=== PATIENT | female | born 1950 | race Caucasian/White ===

== ENCOUNTER 2016-07-13 16:57 | Inpatient (IN) | payer OTHER, MEDICARE ==
--- NOTE | ~2016-07-13 | PN ---
Unit #: [id number] #: [id number] Patient: SYLWIA MENDES [id number] [facility] [address] [place] [address] [id number] I MR#: [id number] NAME: SYLWIA MENDES ROOM: [facility] Age: 65 Sex: F Admission Date: 07/13/2016 : 1950 Attending Physician: Rene Valverde M.D. Admitting Physician: Rene Valverde M.D. Primary Care Physician: Primary Care Physician Amy SON NOTES DATE 07/18/2016 DISCUSSION Ms. Sol is a 65-year-old female seen on 07/18/2016. The patient interviewed, chart reviewed. Obtained information from nursing staff. The patient was compliant and cooperative. Mood sad, dysphoric flat affect, guarded. The patient did not show any aggressive behavior. Vital signs stable 97.2, 69, 16, 119/77. The patient did not show any aggressive behavior. Appropriate cooperative. Complete review of systems unremarkable. MENTAL STATUS EXAMINATION General appearance, the patient dressed casually. Attention span and concentration fair. Oriented to place and person. Mood and affect sad, depressed, flat affect. Speech monotone. Thought process concrete. The patient denied any thoughts of harming self or others but still reporting depression, anxiety, mood lability, guarded. Recent and remote memory fair. Insight and judgement fair. DIAGNOSES Bipolar mood disorder NOS current episode depressed ASSESSMENT/PLAN Advise to continue with current medication and therapeutic protocol. If need consider further adjustment of medication. Dictated by... Tito Bell/immanuel TD: 07/22/2016 00:24 JOB #: [id number] Unit #: [id number] #: [id number] Patient: SYLWIA MENDES JIMYDONTE PROGRESS NOTES Page 1 of 1 X Rene Valverde MD PROGRESS NOTE
--- NOTE | ~2016-07-13 | DS ---
Unit #: [id number] #: [id number] Patient: SYLWIA MENDES [id number] [place] [address] [id number] I MR#: [id number] NAME: SYLWIA MENDES ROOM: [facility] Age: 65 Sex: F Admission Date: 07/13/2016 : 1950 Discharge Date: 07/21/2016 Attending Physician: Rene Valverde M.D. Primary Care Physician: Primary Care Physician No DISCHARGE SUMMARY REASON FOR ADMISSION Depression. DIAGNOSTIC STUDIES LABORATORY RESULTS: Unremarkable. HOSPITAL COURSE The patient was admitted to inpatient unit on 07/13/2016 and discharged on 07/21/2016. The patient was treated on the inpatient unit with group therapy, individual therapy, and medication management. The patient responded well with the above modalities of treatment. Subsequently, the patient was discharged with a plan to follow up in outpatient program. DISCHARGE MEDICATIONS Celexa 20 mg daily for depression and Abilify 5 mg at bedtime for mood stabilization. The patient is to continue with Zanaflex 4 mg t.i.d. for pain, Voltaren 75 mg b.i.d. for pain, Glucophage 500 mg b.i.d. for diabetes, Singulair 10 mg daily for allergies, Zestril 5 mg daily for hypertension, Lipitor 10 mg daily for high cholesterol, Tegretol 200 mg at bedtime for seizure, and Cardizem CD 240 mg daily for hypertension. DISCHARGE DIAGNOSES Psychiatric: 1. Major depressive disorder, recurrent, F33.2. 2. History of bipolar mood disorder. Secondary diagnosis: Deferred. Medical diagnoses: History of obesity, history of atrial fibrillation, melanoma, diabetes mellitus, hypertension, hyperlipidemia, history of diverticulitis. Stressors: Psychosocial stressors. DISCHARGE INSTRUCTIONS The patient is to follow up in outpatient clinic as per high school social studies tutor. CONDITION ON DISCHARGE The patient was pleasant and cooperative. Denied any psychotic symptom or any suicidal ideation. PROGNOSIS Guarded. Unit #: [id number] #: [id number] Patient: SYLWIA MENDES DIET AND ACTIVITY As tolerated. Dictated by... Rene Valverde M.D. SZC/kate TD: 07/21/2016 15:53 JOB #: [id number] DISCHARGE SUMMARY Page 1 of 1 X Rene Valverde MD DISCHARGE SUMMARY
--- NOTE | ~2016-07-13 | PN ---
Unit #: [id number] #: [id number] Patient: SYLWIA MENDES [id number] [facility] [address] [place] [address] [id number] I MR#: [id number] NAME: SYLWIA MENDES ROOM: [facility] Age: 65 Sex: F Admission Date: 07/13/2016 : 1950 Attending Physician: Rene Vlaverde M.D. Admitting Physician: Rene Valverde M.D. Primary Care Physician: Primary Care Physician Amy REYES PROGRESS NOTES DATE OF SERVICE 07/16/2016 DISCUSSION Ms. Sol is a 65-year-old female seen on 07/16/2016. The patient interviewed, chart reviewed. Obtained information from nursing staff. The patient continues to report feeling sad, depressed, withdrawn, isolative. Feeling of hopelessness, worthlessness. Still having passive SI. Complete Review of Systems: Unremarkable. MENTAL STATUS EXAMINATION General Appearance: The patient dressed casually. Attention span, concentration: Fair. Oriented in place and person. Mood and affect: Sad, depressed. Speech: Monotone. Thought process: Hillman. The patient reported having passive SI, but denied any homicidal ideation. Recent and remote memory: Fair. Insight and judgment: Fair to poor. DIAGNOSES 1. Major depressive disorder, recurrent. 2. History of bipolar mood disorder. ASSESSMENT/PLAN Advised to continue with current medication and therapeutic protocol. If needed, consider further adjustment of medication. Dictated by... Tito Bell/pallavi TD: 07/19/2016 09:40 JOB #: [id number] Unit #: [id number] #: [id number] Patient: SYLWIA MENDES PEADONTE PROGRESS NOTES Page 1 of 1 X Rene Valverde MD X PROGRESS NOTE
--- NOTE | ~2016-07-13 | PA ---
Unit #: [id number] #: [id number] [facility]: [facility] [id number] [facility] [place] [address] [id number] I MR#: [id number] NAME: YSLWIA MENDES ROOM: [facility] Age: 65 Sex: F Admission Date: 07/13/2016 : 1950 Date of Assessment: Attending Physician: Rene Valverde M.D. Admitting Physician: Rene Valverde M.D. Primary Care Physician: Primary Care Physician No PSYCHIATRIC ASSESSMENT INFORMANTS The patient reliability, fair; chart reliability, good. CHIEF COMPLAINT Depression. HISTORY OF PRESENT ILLNESS Ms. Sol is a 65-year-old female, seen on , presented with the above-mentioned complaint. The patient presented with feeling sad, depressed, feeling of hopelessness. The patient reports her depression is getting worse. The patient reported previous treatment for bipolar episode in 2013. The patient has also been treated in the past at [place]. The patient reported feeling overwhelmed. 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 The patient reported that due to being overwhelmed by caregiving to her disabled , she is not able to maintain her home properly and she is in a state that she finds intolerable, yet she does not have any energy to fix that. The patient reported that she takes Latuda, still having above-mentioned symptom. The patient reported low energy, hopelessness, worthlessness, and decreased sleep. The patient reported poor appetite and past suicidal ideation. Needing inpatient admission at this time for psychiatric stabilization. PAST PSYCHIATRIC HISTORY Remarkable [facility] The patient was treated at that time with Depakote and Abilify combination. FAMILY HISTORY AND SOCIAL HISTORY The patient has a good support system. No history of any abuse. MEDICAL HISTORY Remarkable for history of diverticulitis, hypertension, hyperlipidemia, diabetes mellitus, and obesity. MEDICATION HISTORY The patient is currently on Flonase, Cardizem, Zestril, Glucophage, trazodone, Tegretol, Lipitor, Singulair, Zanaflex, currently on Medrol patch. ALLERGIES No known drug allergies. SUBSTANCE ABUSE HISTORY Unit #: [id number] #: [id number] Patient: SYLWIA MENDES None. REVIEW OF SYSTEMS HEENT: Eyes, clear. Ears, nose, mouth, and throat; clear. CARDIOVASCULAR: Unremarkable. RESPIRATORY: Unremarkable. GI: Unremarkable. : Unremarkable. SKIN: Unremarkable. LYMPH NODE: Unremarkable. NEUROLOGIC: Unremarkable. ENDOCRINE: Unremarkable. HEMATOLOGIC: Unremarkable. ALLERGIC/IMMUNOLOGIC: Unremarkable. MUSCULOSKELETAL: Muscle strength and tone, no atrophy or abnormal movement. Gait normal. MENTAL STATUS EXAMINATION CONSTITUTIONAL: Measurement of vital signs; temperature 98.7, pulse 70, respirations 20, and blood pressure 144/82. Height 5 feet 4 inches and weight 212 pounds. GENERAL APPEARANCE: The patient dressed casually. The patient did not show any facial deformity. MUSCULOSKELETAL: Please see above. PSYCHIATRIC EXAMINATION Description of speech; regular rate, normal volume, normal articulation, coherent. Description of thought process, goal directed. Description of association, intact. Description of abnormal psychotic thinking; guarded, paranoid, but denied any homicidal ideation. Reported having suicidal ideation, sad, depressed. Description of the patient's judgment: Concerning everyday activity, poor. Social situation, poor. Concerning psychiatric condition, poor. Complete mental status examination; oriented in time, place, and person. Recent and remote memory, fair. Attention span and concentration, fair. Language; able to name object, repeat phrases. Fund of knowledge; aware of current event, passive vocabulary intact. Mood and affect; sad, depressed. Insight and judgment, fair to poor. ASSETS AND LIABILITIES Assets; the patient is articulate, able to take care of her ADL. Liabilities; history of depression, bipolar disorder. ADMITTING DIAGNOSES Psychiatric: Bipolar mood disorder, not otherwise specified, F31.89. Secondary diagnosis: Deferred. Medical diagnosis: Please refer to H and P. Stressors: Psychosocial stressors. PSYCHIATRIC PLAN, TREATMENT GOAL, AND DISCHARGE PLAN 1. Advised to admit the patient on the inpatient unit. Provide safe, supportive, and structured environment. 2. Ordered labs; CBC, CMP, UA, and UDS. 3. Precaution for self-harm. Unit #: [id number] #: [id number] Patient: SYLWIA MENDES 4. Advised to continue with current medication with a plan to stop Latuda because of potential interaction with another medication and currently medication is not working and recommending to start Celexa 20 mg daily and Abilify 5 mg at bedtime. 5. Treatment goal is to attain euthymic mood, gain insight into her problem, and learn coping skills. 6. Discharge plan: Plan is to stabilize the patient and consider followup in outpatient program. ESTIMATED LENGTH OF STAY 5 days. Dictated by... Tito Bell/kate TD: 07/14/2016 20:22 JOB #: [id number] PSYCHIATRIC ASSESSMENT Page 1 of 1 X Rene Valverde MD PSYCHIATRIC ASSESSMENT
--- NOTE | ~2016-07-13 | PN ---
Unit #: [id number] #: [id number] Patient: SYLWIA HODGES [id number] [facility] [address] [place] [address] [id number] I MR#: [id number] NAME: SYLWIA HODGES ROOM: [facility] Age: 65 Sex: F Admission Date: 07/13/2016 : 1950 Attending Physician: Rene Valverde M.D. Admitting Physician: Rene Valverde M.D. Primary Care Physician: Primary Care Physician No [facility] PROGRESS NOTES DATE 07/15/2016 DISCUSSION Sylwia Hodges is a 65-year-old female, seen on 07/15/2016. The patient tolerating medication fairly well. Mood sad and dysphoric, flat affect, currently on a combination of Abilify, Celexa, and trazodone p.r.n. The patient continues to look sad and dysphoric, flat affect. VITAL SIGNS: 97.8, pulse 80, respirations 16, and blood pressure 128/65. The patient was able to attend some groups but still sad, depressed, withdrawn, isolative, guarded, still reported feeling sad, depressed, feelings of hopelessness, worthlessness but able to contract for safety, SI. REVIEW OF SYSTEMS Complete review of systems unremarkable. MENTAL STATUS EXAMINATION General appearance: Patient dressed casually. Attention span and concentration, fair. Oriented to place and person. Mood and affect, sad, dysphoric. Speech, monotone. Thought process, concrete. The patient denied any thoughts of harming self or others but SI, guarded, withdrawn, isolative, seclusive. Recent and remote memory, poor. Insight and judgment, poor. DIAGNOSIS Bipolar mood disorder, NOS. ASSESSMENT/PLAN Advised to continue with the current medication and therapeutic protocol and if needed consider further adjustment of medication. Dictated by... Rene Valverde M.D. GARRETT/devyn TD: 07/17/2016 09:12 Unit #: [id number] #: [id number] Patient: SYLWIA HODGES JOB #: [id number] [facility] PROGRESS NOTES Page 1 of 1 X Rene Valverde MD NOTE
--- NOTE | ~2016-07-13 | HP ---
Unit #: [id number] #: [id number] Patient: SYLWIA MENDES [id number] [place] [address] [id number] I MR#: [id number] NAME: SYLWIA MENDES ROOM: [facility] Age: 65 Sex: F Admission Date: 07/13/2016 : 1950 Attending Physician: Rene Valverde M.D. Admitting Physician: Rene Valverde M.D. Primary Care Physician: Primary Care Physician No HISTORY AND PHYSICAL HISTORY OF PRESENT ILLNESS Sylwia is a 65 year old admitted to [facility] with depression, increased anxiety and verbalizing wanting to hurt herself. PAST MEDICAL HISTORY 1. Morbid obesity 2. History of atrial fib 3. History of melanoma 4. Diabetes mellitus 5. High blood pressure 6. Hyperlipidemia 7. History of diverticulitis PAST SURGICAL HISTORY 1. Right ear 2. Right knee 3. T & A 4. Sinus surgery ALLERGIES Keflex, penicillin, latex. SOCIAL HISTORY She denies cigarettes, alcohol and illicit drug use. FAMILY HISTORY Medically noncontributory. REVIEW OF SYSTEMS CONSTITUTIONAL: No fever or chills. HEENT: Denies any sore throat, ear pain or runny nose. CARDIOVASCULAR: Denies chest pain, irregular heart rhythm or palpitations. CHEST: Denies shortness of breath or cough. No hemoptysis. GASTROINTESTINAL: Denies nausea, vomiting, diarrhea or chronic constipation. ENDOCRINE: Denies history of increased thirst or urination. No recent significant weight loss or gain. GENITOURINARY: Denies dysuria, frequency, or hematuria. SKIN: Denies any rashes. HEMATOLOGIC: Denies history of increased bleeding or bruising. MUSCULOSKELETAL: Denies any hot, swollen joints. No generalized muscle pain. NEUROLOGIC: Denies problems with vision or speech. No frequent, severe Unit #: [id number] #: [id number] Patient: SYLWIA MENDES headaches. No numbness, tingling or weakness in any extremities. Denies loss of bladder or bowel control. CURRENT MEDICATIONS 1. Celexa 20 mg daily 2. Cardizem CD 240 mg daily 3. Zestril 5 mg daily 4. Glucophage 500 mg b.i.d. 5. Trazodone 75 mg q.h.s. p.r.n. 6. Milk of Magnesia p.r.n. 7. Maalox p.r.n. 8. Tylenol p.r.n. 9. Tegretol 400 mg q.h.s. 10. Lipitor 10 mg daily 11. Singulair 10 mg daily 12. Diclofenac 75 mg b.i.d. 13. Zanaflex 4 mg t.i.d. 14. Medrol dose leslie as directed PHYSICAL EXAMINATION GENERAL: Alert, morbidly obese, in no apparent distress. VITAL SIGNS: Blood pressure 144/82, heart rate 70, respirations 16, temperature 98.6. WEIGHT: 212 pounds. HEIGHT: 5'4". SKIN: Warm and dry without rash or lesion. HEENT: Normocephalic. TMs not viewed. Oral and nasal passages clear. Conjunctivae clear. Pupils equal, round and reactive to light and accommodation. Extraocular movements intact. NECK: Supple without lymphadenopathy or thyromegaly. HEART: Regular rate and rhythm without murmur. LUNGS: Clear. ABDOMEN: Soft, nontender. : Not done. EXTREMITIES: No evidence of cyanosis, clubbing or edema. Moves all extremities without focal deficit. NEUROLOGICAL: Grossly within normal limits. Cranial Nerves: II: Visual gongora are intact. III, IV AND : Extraocular movements are intact. Pupils are equal, round and reactive to light. V: Facial sensation is grossly normal. VII: Facial movements and expression are normal. VIII: Auditory acuity grossly intact. IX, X: Uvula is midline. Phonation is normal. XI: Patient shrugs shoulders and turns head normally. XII: Tongue protrudes in the midline. Sensory and Motor Function: Sensory and motor sensation is grossly normal. Motor: moves all extremities well. Coordination: Gait is normal. Deep Tendon Reflexes: Intact. IMPRESSION Psychiatric admission RECOMMENDATIONS PSYCHIATRIC: Per psychiatrist. MEDICAL: I see no contraindications to participating in facility's activities. MEDICAL PROGNOSIS Unit #: [id number] #: [id number] Patient: SYLWIA MENDES. MEDICAL CONDITION Stable. Dictated by... Araceli Magaña P.A.-C. for Tito Swanson/immanuel TD: 07/15/2016 00:59 JOB #: [id number] HISTORY AND PHYSICAL Page 1 of 1 X Araceli Magaña HISTORY AND PHYSICAL
--- NOTE | ~2016-07-13 | PN ---
Unit #: [id number] #: [id number] Patient: SYLWIA MENDES [id number] [facility] [address] [place] [address] [id number] I MR#: [id number] NAME: SYLWIA MENDES ROOM: [facility] Age: 65 Sex: F Admission Date: 07/13/2016 : 1950 Attending Physician: Rene Valverde M.D. Admitting Physician: Rene Valverde M.D. Primary Care Physician: Primary Care Physician Amy REYES PROGRESS NOTES DATE 07/19/2016 DISCUSSION Ms. Sol is a 65-year-old female, seen on 07/19/2016. The patient interviewed, chart reviewed, and obtained information from the nursing staff. The patient was able to participate in all the programming, sleeping good, tolerating medication fairly well making progress. REVIEW OF SYSTEMS Complete review of systems unremarkable. MENTAL STATUS EXAMINATION General appearance: Patient dressed casually. Attention span and concentration, fair. Oriented to place and person. Mood and affect, sad and dysphoric. Speech, monotone. Thought process, concrete. The patient denied any thoughts of harming self or others or any psychotic symptoms. Recent and remote memory, poor. Insight and judgment, poor. DIAGNOSES 1. Mood disorder, NOS. 2. Major depressive disorder, recurrent. ASSESSMENT/PLAN Advised to continue with the current medication and therapeutic protocol if needed, consider further adjustment of medication with the plan to consider discharge on Thursday if the patient continues to do well. Dictated by... Tito Bell/devyn TD: 07/22/2016 06:52 JOB #: [id number] Unit #: [id number] #: [id number] Patient: SYLWIA MENDES PROGRESS NOTES Page 1 of 1 X Rene Valverde MD X PROGRESS NOTE
--- NOTE | ~2016-07-13 | PN ---
Unit #: [id number] #: [id number] Patient: SYLWIA MENDES [id number] [facility] [address] [place] [address] [id number] MR#: [id number] NAME: SYLWIA MENDES ROOM: [facility] Age: 65 Sex: F Admission Date: 07/13/2016 : 1950 Attending Physician: Rene Valverde M.D. Admitting Physician: Rene Valverde M.D. Primary Care Physician: Primary Care Physician Amy REYES PROGRESS NOTES DATE OF SERVICE: 07/20/2016 DISCUSSION Ms. Sol is a 65-year-old female, seen on 07/20/2016. The patient interviewed, chart reviewed, and obtained information from nursing staff. The patient reports making progress, decrease in anxiety. Mood is better. No side effects from medication. Looking forward to be discharged tomorrow. Complete review of systems unremarkable. MENTAL STATUS EXAMINATION General appearance, the patient dressed casually. Attention span and concentration, fair. Oriented in time, place, and person. Mood and affect were sad and dysphoric, but able to smile. Speech, regular rate. Thought process, goal directed. The patient denied any thoughts of harming self or others, but guarded. Recent and remote memory, poor. Insight and judgment, poor. DIAGNOSIS Major depressive disorder, recurrent. ASSESSMENT AND PLAN Advised to continue with current medication and therapeutic protocol. If needed, consider further adjustment of medication. Dictated by... Tito Bell/kate TD: 07/21/2016 20:12 JOB #: [id number] Unit #: [id number] #: [id number] Patient: SYLWIA MENDES PROGRESS NOTES Page 1 of 1 X Rene Valverde MD X PROGRESS NOTE
--- NOTE | ~2016-07-13 | PN ---
Unit #: [id number] #: [id number] Patient: SYLWIA MENDES [id number] [facility] [address] [place] [address] [id number] I MR#: [id number] NAME: SYLWIA MENDES ROOM: [facility] Age: 65 Sex: F Admission Date: 07/13/2016 : 1950 Attending Physician: Rene Valverde M.D. Admitting Physician: Rene Valverde M.D. Primary Care Physician: Primary Care Physician Amy REYES PROGRESS NOTES DATE OF SERVICE: 07/17/2016 DISCUSSION Ms. Sol is a 65-year-old female, seen on 07/17/2016. The patient interviewed, chart reviewed, and obtained information from nursing staff. The patient was compliant and cooperative. Mood was sad and dysphoric. Vital signs stable. The patient reports still feeling sad, depressed, anxious, but denied any suicidal or homicidal ideation, still withdrawn, flat, sad, dysphoric. Complete review of systems unremarkable. MENTAL STATUS EXAMINATION General appearance, the patient dressed casually. Attention span and concentration, fair. Oriented in place and person. Mood and affect; sad, depressed. Speech, monotone. Thought process, concrete. The patient denied any suicidal or homicidal ideation, but passive SI, guarded. Recent and remote memory, fair. Insight and judgment, fair to poor. DIAGNOSIS Major depressive disorder, recurrent. ASSESSMENT AND PLAN Advised to continue with current medication. If needed, consider further adjustment of medication. Dictated by... Tito Bell/kate TD: 07/17/2016 21:46 JOB #: [id number] Unit #: [id number] #: [id number] Patient: SYLWIA MENDES PROGRESS NOTES Page 1 of 1 X Rene Valverde MD PROGRESS NOTE
--- NOTE | ~2016-07-13 | CO ---
Unit #: [id number] #: [id number] Patient: SYLWIA MENDES [id number] [facility] [address] [place] [address] [id number] MR#: [id number] NAME: SYLWIA MENDES ROOM: [facility] Age: 65 Sex: F Admission Date: 07/13/2016 : 1950 Attending Physician: Rene Valverde M.D. Primary Care Physician: Primary Care Physician No Consultation Date: 07/14/2016 CONSULTATION REPORT SUBJECTIVE Sylwia is a 65-year-old, morbidly obese lady admitted with depression. At some point during her admission, she had complained to a nursing staff about pain. She denied any recent injury. I believe this pain was involved her knees and lower back. She denies any numbness, tingling or weakness in her extremities. We have been asked to assess and treat. At the time of admission, when I saw the patient for her admission H and P, she had no complaints to me of pain. I have noted her ambulating on the unit on numerous occasions without difficulty or inference of discomfort. She has Tylenol and diclofenac. She has been using both of these and I think she is doing quite well with both. PLAN Plan will be to continue these. She can follow up with PCP. Dictated by... Araceli Magaña P.A.-C. for Tiot Swanson/kate TD: 07/18/2016 06:53 JOB #: [id number] CONSULTATION REPORT Page 1 of 1 X Araceli Magaña X CONSULTATION REPORT
[2016-07-14 09:35] LABS: BASOPHIL% 0.8 % (0-2.5); EOSINOPHIL% 0.7 % (0.0-7.0); HEMATOCRIT 37.1 % (35.0-45.0); HEMOGLOBIN 12.3 gm/dL (12.0-16.0); LYMPHOCYTE# 1.7 X10e3 (1.0-3.5); LYMPHOCYTE% 26.6 % (17.0-45.0); MEAN CELL VOLUME 92.4 FL (83-96); MEAN CORPUSCULAR HEMOGLOBIN 30.6 PG (28-34); MEAN CORPUSCULAR HGB CONC 33.1 g/dL (30-36); MONOCYTE# 0.6 X10e3 (0-1.0); MONOCYTE% 10.1 % (3.0-12.0); NEUTROPHIL# 3.9 X10e3 (1.5-7.1); NEUTROPHIL% 61.8 % (40-75); PLATELET COUNT 193 X10e3 (140-420); RED BLOOD COUNT 4.02 X10e (3.90-5.30); RED CELL DISTRIBUTION WIDTH 13.8 % (11.0-15.5); WHITE BLOOD COUNT 6.3 X10e3 (4.0-10.5)
[2016-07-14 09:41] LABS: DIFF IND NO
[2016-07-14 09:47] LABS: URINE APPEARANCE CLOUDY; URINE BILIRUBIN NEG (NEG); URINE BLOOD NEG (NEG); URINE COLOR YELLOW; URINE GLUCOSE NORM (NORM); URINE KETONE NEG (NEG); URINE LEUKOCYTE ESTERASE NEG (NEG); URINE NITRATE NEG (NEG); URINE PROTEIN 1+ (NEG); URINE UROBILINOGEN NORM (NORM)
[2016-07-14 09:53] LABS: URINE AMORPHOUS SEDIMENT AMORP URATES; URINE CRYSTALS CALCIUM OXALATE /[HPF]; URINE SQUAMOUS EPITHELIAL CELL FEW /[HPF]
[2016-07-14 09:56] LABS: ALBUMIN SERUM 3.6 g/dL (3.5-5.0); BILIRUBIN,TOTAL 0.5 mg/dL (0.2-2.0); BUN/CREATININE RATIO 24.44; CALCIUM SERUM 8.8 mg/dL (8.4-10.2); CREATININE SERUM 0.9 mg/dL (0.6-1.4); GLOM FILT RATE Estimated 67.1 mL/min (>60); POTASSIUM 4.1 mmol/L (3.5-5.1); PROTEIN TOTAL SERUM 6.1 g/dL (6.0-8.3); TEGRETOL (CARBAMAZEPINE) 4.6 ug/mL (4.0-12.0)
[2016-07-14 09:57] LABS: THYROID STIMULATING HORMONE 3.13 uIU/ml (0.34-5.60)
[2016-07-14 10:04] LABS: FREE THYROXIN (T4) 0.94 ng/dL (0.58-1.64)
[2016-07-14 10:28] LABS: AMPHETAMINE NEG (NEG); BARBITURATES NEG (NEG); BENZODIAZEPINES NEG (NEG); COCAINE NEG (NEG); MARIJUANA NEG (NEG); OPIATES POS (NEG); TRICYCLIC ANTIDEPRESSANTS NEG (NEG); U METHADONE NEG (NEG)
== END 2016-07-21 16:35 | disposition home or self-care (01) | DRG 885 ==
LOC: P1E 16:57 → P2L 07-14 17:06
PROVIDERS: Psychiatry & Neurology Psychiatry
DX: F33.2 Major depressive disorder, recurrent severe without psychotic features (principal); E66.01 Morbid (severe) obesity due to excess calories; I48.91 Unspecified atrial fibrillation; I10 Essential (primary) hypertension; E78.5 Hyperlipidemia, unspecified; E11.9 Type 2 diabetes mellitus without complications; Z85.820 Personal history of malignant melanoma of skin; Z88.1 Allergy status to other antibiotic agents; Z88.0 Allergy status to penicillin; Z91.040 Latex allergy status; F39 Unspecified mood [affective] disorder
CPT/HCPCS: 80053; 80156; 80307; 81003; 84439; 84443; 85025